=== PATIENT | female | born 1980 | race Caucasian/White ===

== ENCOUNTER → 2020-03-13 | Outpatient (CLI) | payer OTHER ==
--- NOTE | 2020-03-13 14:47 | PFTRPT ---
Height: 64.50 Inches Weight: 125.00 Lbs BSA: 1.61 Diagnosis: DYSPNEA DATE: 03/13/2020 ORDERING PHYSICIAN: Dr. Brian Sanchez Pre and post bronchodilator studies have excellent technical quality. Forced vital capacity is normal. FEV1 is in proportion. Obstructive index is therefore normal. Expiratory limit of the flow-volume loop is normal. No significant bronchodilator response is identified. Total lung capacity is normal. Residual volume is in proportion. Diffusing capacity is mildly elevated. No hemoglobin available for correction. Airway resistance and conductance are normal. IMPRESSION: Elevation of diffusing capacity requires clinical correlation. MTDD
== END ==
LOC: M CARPUL 14:09
PROVIDERS: ATTEND Emergency Medicine
DX: R06.00 Dyspnea, unspecified (principal)

== ENCOUNTER → 2020-03-27 | Outpatient (CLI) | payer OTHER ==
[~2020-03-27] MED LIST: METHACHOLINE KIT (J7674) INH ONE
--- NOTE | 2020-03-27 09:01 | PFTRPT ---
Visit Date: 03/27/2020 Referring Doctor: Brian Sanchez D.O. Height: 64.50 Inches Weight: 125.00 Lbs BSA: 1.61 Diagnosis: DYSPNEA QUALITY: Study of excellent technical quality. PROCEDURE: Under protocol, methacholine was administered. Even after a maximal dose of 25 mg or 188.875 CDUs, no provocation dose ever achieved. IMPRESSION: Negative methacholine challenge study. MTDD
== END ==
LOC: M CARPUL 07:49
PROVIDERS: ATTEND Emergency Medicine
DX: R06.00 Dyspnea, unspecified (principal)
CPT/HCPCS: 94070; J7674